=== PATIENT | female | born 1990 | race Caucasian/White ===

== ENCOUNTER 2019-06-25 20:06 | Emergency (ER) | payer OTHER, BC, SELFPAY ==
[2019-06-25 20:09] VITALS: BP 153/86; PULSE 104; RESP 16; TEMP 36.5; O2SAT 100
--- NOTE | 2019-06-25 20:30 | PC.NURSE ---
Worker here from patient's work to do tox screen on patient.
--- NOTE | 2019-06-25 20:41 | ED.LOWEXIN ---
HPI - Extremity Injury (Lower) General Chief Complaint: Extremity Injury, Lower Stated Complaint: LLE INJURY AT WORK Time Seen by Provider: 06/25/19 20:10 Source: patient and RN notes reviewed Mode of arrival: ambulatory Limitations: no limitations History of Present Illness HPI Narrative: Pt is a 29 y/o female who presents to the ED with c/o lt groin injury happening this evening. She notes that she accidentally tripped over a rug while at work this evening. Pt states that she is unsure of exactly what happened during the fall, but notes that she has had pain in her lt groin ever since. Pt notes that she believes she may have pulled a muscle in her lt thigh. She states that her pain radiates down into her lt knee. Pt notes that she has been able to walk since the injury. She currently denies any bruising or numbness/tingling. MD complaint: thigh injury Injury: Left: thigh (lt groin) Type of Injury: unknown Place: work Context: fall Other symptoms: none Related Data Allergies Allergy/AdvReac Type Severity Reaction Status Date / Time No Known Allergies Allergy Verified 06/25/19 20:40 Review of Systems Review of Systems: Narrative: SKIN: Denies rash, bruising, or itching. MUSCULOSKELETAL: Denies back pain. Reports lt groin pain radiating into lt knee. NEUROLOGIC: Denies headache, numbness/tingling, or weakness. All systems reviewed & are unremarkable except as noted in HPI and below PMFSH Past Medical History Medical History Bronchitis Depression PCOS (polycystic ovarian syndrome) Surgical History Surgical History Hx of section Hx of cholecystectomy Family History Family History (Updated 12/11/13 @ 07:13 by DOCTOR UNKNOWN) Grandparent Family history of lung cancer Social History Social History Smoking status: Never smoker Second hand tobacco smoke exposure: No Alcohol intake: current Exam Narrative: Exam Narrative: GENERAL: Well-appearing, well-nourished, and in no acute distress. HEAD: Normocephalic, atraumatic. EYES: PERRLA and EOMI. ENT: Nares clear, no rhinorrhea or epistaxis. Mucous membranes moist. NECK: Supple. CHEST: No respiratory distress. HEART: Mildly tachycardic rate. No murmur heard. Normal peripheral pulses (Bilateral DP pulses are 2+). ABDOMEN: Nondistended EXTREMITIES: Normal range of motion in lt ankle and lt knee without limitation. No edema. No pelvic tenderness. No pain with internal or external rotation of lt hip. No lt ankle or lt knee tenderness. Full active flexion and extension of the left knee, left ankle without limitation or pain. No limb length discrepancy. SKIN: Warm, dry, no rash. NEURO: No focal deficits. Alert and oriented. Patient ambulatory with a narrow base, steady gait. No increased pain with ambulation. No numbness. Intact sensation distally. Intact FHL/EHL. Course Course Emergency Course: Patient presented to the emergency department for evaluation of left hip pain following a fall. The patient's pain is described as a radiating pain. She is ambulatory. There is no limb length discrepancy, no deformity or severe bruising, and intact neurovascularly. She had no pain with internal or external rotation of the left hip, flexion or extension, knee pain or ankle pain. I feel it given the benign nature of the patient's pain, the radiating nature from the top of the hip down into the knee, this seems most consistent with hip strain. Shared decision-making occurred, as the patient is ambulatory the patient was offered imaging but declined. I explained that patient may do gentle range of motion exercises, take ibuprofen and Tylenol for inflammation and pain, and advised her to follow-up with her primary care physician. She was then discharged in stable condition. Vital Signs Vital signs: Vital Signs Temperature 36
== END 2019-06-25 21:07 | disposition home or self-care (01) ==
PROVIDERS: Emergency Provider Emergency Medicine
DX: S76.012A Strain of muscle, fascia and tendon of left hip, initial encounter (principal); F32.9 Major depressive disorder, single episode, unspecified; W01.0XXA Fall on same level from slipping, tripping and stumbling without subsequent striking against object, initial encounter
CPT/HCPCS: 99282

== ENCOUNTER 2021-02-10 10:50 | Outpatient (CLI) | payer BC, SELFPAY ==
[2021-02-15 11:50] LABS: HSV 1 IgM Screen Negative (Negative); HSV 2 IgM Screen Negative (Negative)
== END 2021-02-10 10:51 | disposition home or self-care (01) ==
LOC: ANHLAB 10:53
PROVIDERS: PCP Nurse Practitioner Family; Visit Provider Obstetrics & Gynecology
DX: Z20.2 Contact with and (suspected) exposure to infections with a predominantly sexual mode of transmission (principal)
CPT/HCPCS: 36415; 86695; 86696